=== PATIENT | male | born 1980 | race Caucasian/White ===

== ENCOUNTER 2024-10-20 19:23 | Emergency (ER) | payer MEDICAID, SELFPAY ==
[2024-10-20] VITALS (7 sets, daily range): BP systolic 130–165; BP diastolic 92–130; PULSE 75–92; RESP 18; TEMP 36.6; O2SAT 99–100; BMI 22.1
--- NOTE | 2024-10-20 19:22 | XR_ITS ---
PROCEDURE INFORMATION: Exam: XR Left Hand Exam date and time: 10/20/2024 7:37 PM Age: 44 years old Clinical indication: Injury or trauma; Other: Laceration; Left; Index finger and middle finger and ring finger; Additional info: Traumatic amp TECHNIQUE: Imaging protocol: Radiologic exam of the left hand. Views: 3 or more views. COMPARISON: No relevant prior studies available. FINDINGS: Bones/joints: Comminuted fracture of the 4th digit tuft. Medial displacement/rotation of the medial fragment. Soft tissues: Irregularity in the distal soft tissues of the 4th digit, compatible with laceration. IMPRESSION: 1. Comminuted fracture of the 4th digit tuft. 2. Irregularity in the distal soft tissues of the 4th digit, compatible with laceration.
--- NOTE | 2024-10-20 19:22 | XR_ITS ---
PROCEDURE INFORMATION: Exam: XR Right Hand Trauma Exam date and time: 10/20/2024 7:37 PM Age: 44 years old Clinical indication: Injury or trauma; Other: Laceration; Right; Middle finger; Additional info: R hand inj TECHNIQUE: Imaging protocol: Radiologic exam of the right hand. Views: 3 or more views. Trauma COMPARISON: No relevant prior studies available. FINDINGS: Bones/joints: Normal. No acute fracture. No dislocation. Soft tissues: Normal. No abnormal calcifications. IMPRESSION: No acute findings.
--- NOTE | 2024-10-20 19:25 | PC.NURSE ---
1913- trauma alert called and dispatch notified of trauma alert from [facility]
--- NOTE | 2024-10-20 19:30 | HMH.EDGENADL ---
Discharge Plan Disposition Patient Disposition: Xfer Short-Term Hosp Clinical Impressions Clinical Impression: Open fracture of distal phalanx Injury of hand, right Qualifiers: Encounter type: initial encounter Qualified Code(s): S69.91XA - Unspecified injury of right wrist, hand and finger(s), initial encounter Injury of hand, left Qualifiers: Encounter type: initial encounter Qualified Code(s): S69.92XA - Unspecified injury of left wrist, hand and finger(s), initial encounter Print Language Print Language: [place] Discharge ED Provider: Juan J Bahena General Adult HPI General Chief complaint: Trauma Stated complaint: laceration Time Seen by Provider: 10/20/24 19:29 Mode of Arrival: EMS Source of Information: Patient and EMS Description of Symptoms (Recalled from ER Triage Doc. by RN): near amputation to left 3rd and 4th figners laceration to right 3rd finger see trauma charting History of Present Illness HPI narrative: This is a 44-year-old male who presents with a traumatic amputation of his left 3rd and 4th digits. Also reports laceration to the right third digit. Cut them on a lawnmower blade. Denies any other injuries. States that he had a tetanus shot last year. Related Data Allergies Allergy/AdvReac Type Severity Reaction Status Date / Time No Known Allergies Allergy Verified 10/20/24 19:26 [facility] Disclaimer: The information contained in this section may have been updated after the patient was seen, as this information can be updated by other users. Social History Smoking Status: Current every day smoker alcohol intake: current current occupational status: employed Travel in the last 8 weeks?: None ROS Obtained: Yes All systems reviewed & no additional complaints except as documented Physical Exam General General appearance: alert and in no apparent distress Head Head exam: atraumatic Eye Eye exam: Present normal appearance, PERRL and EOMI Neck Neck exam: Present normal inspection and full ROM Chest Chest inspection: Present symmetric chest wall rise Respiratory Respiratory exam: Present normal lung sounds bilaterally; Absent respiratory distress Cardiovascular Cardiovascular exam: Present regular rate and normal rhythm Abdominal Exam Abdominal exam: Present soft; Absent distention Extremities Exam Extremities exam: Present other (L hand: Deep lacerations to the the distal phalanx of the 3rd and 4th digits. Bone exposed. R hand: Superficial minimally gaping laceration into the distal phalanx of the third digit.) Neurological Exam Neurological exam: Present alert and oriented X3 Psychiatric Psychiatric exam: Present normal affect and normal mood Skin Skin exam: Present warm and dry Medical Decision Making Medical Records Medical records reviewed: Yes I reviewed the patient's medical records. Screening: Per USPSTF and CDC recommendations, given the prevalence of disease in our region, it is our hospital?s policy to screen for HIV and viral Hepatitis for all patients aged 18 and over and those with ongoing risk factors. [place] Inquiry Pt receiving controlled substance: No Vital Signs: 10/20/24 19:23 10/20/24 19:29 Temperature 97.8 F 97.8 F Temperature Source Oral Oral Pulse Rate [Radial] 92 H 92 H Respiratory Rate 18 18 Blood Pressure [Right Arm] 134/111 H 140/92 H Blood Pressure Mean [Right Arm] 118 108 Blood Pressure Position [Right Arm] Sitting Sitting 02 Sat by Pulse Oximetry 100 100 Oxygen Delivery Method Room Air Room Air Lab Data Lab Results 10/20/24 19:26: POC Glucose 139 H Orders (Tests/Meds): ED MEDICATIONS Discontinued Medications Generic Name Dose Route Start Last Admin Trade Name Cliffordq PRN Reason Stop Dose Admin Hydromorphone HCl 0.5 mg 10/20/24 19:22 10/20/24 20:02 Hydromorphone 2mg/Ml Syringe IV 10/20/24 19:23 0.5 mg ONCE ONE Administration Cefazolin Sodium 2 gm/ Sodium 100 mls @ 200 mls/hr 10/20/24 19:23 10/20/24 20:03 Chloride IV 10/20/24 19:52 200 mls/hr ONCE ONE Administration Lorazepam 1 mg 10/20/24 19:22 10/20/24 19:33 Lorazepam 1mg Tablet PO 10/20/24 19:23 1 mg ONCE ONE Administration ORDERS Category Date Time Status Hand XR left minimum 3 views [XR hand LT min 3V] Stat Exams 10/20/24 19:22 Completed Hand XR right minimum 3 views [XR hand RT min 3V] Stat Exams 10/20/24 19:22 Completed POC Glucose,Bedside Routine Lab 10/20/24 19:26 Completed Medical Decision Narrative: This is a 44-year-old male who presents with near amputation of his 3rd and 4th digits of the left hand as well as laceration of the third digit of his right hand after injuring them on a lawnmower blade. On arrival, patient hemodynamically stable, nontoxic-appearing, hemostatic. Differential diagnose includes but is not limited to traumatic amputation, open fracture, soft tissue injury. Tdap up-to-date. Administered 2 g of Ancef. Administered 1 MG oral Ativan for anxiolysis and IV Dilaudid for analgesia. X-ray imaging was obtained and revealing []. Consulted hand surgery at [facility] for evaluation of this patient's injuries. Ultimately transferred to for higher level of care and surgical repair of his near amputations. Accepted to the [facility] emergency department under Dr. Gunn. Transported in stable condition. Critical Care Critical Care Time Critical Care Time: No
[2024-10-20] MEDS: LORazepam 1MG TABLET 1 MG PO (19:33)
[2024-10-20 19:35] LABS: POC Glucose,Bedside 139 (70-110)
--- NOTE | 2024-10-20 19:46 | PC.NURSE ---
Spoke with transfer center, awaiting a call back at this time
[2024-10-20] MEDS: HYDROMORPHONE 2MG/ML SYRINGE 0.5 MG IV (20:02)
[2024-10-20] MEDS: CEFAZOLIN SODIUM 2 GM in 0.9 % SODIUM CHLORIDE 100 ML IV (20:03)
--- NOTE | 2024-10-20 20:14 | PC.NURSE ---
report given to Albert ROMANO at [facility]
--- NOTE | 2024-10-20 20:19 | PC.NURSE ---
Attempted to call EMS for transfer to , no answer at this time
--- NOTE | 2024-10-20 20:25 | PC.NURSE ---
Attempted to call EMS again, no answer at this time.
--- NOTE | 2024-10-20 20:43 | PC.NURSE ---
Spoke with [facility], they are made aware of the transfer and will be up here shortly
== END 2024-10-20 21:14 | disposition short-term general hospital (02) ==
PROVIDERS: Emergency Provider Student in an Organized Health Care Education/Training Program
DX: S62.635B Displaced fracture of distal phalanx of left ring finger, initial encounter for open fracture (principal); W28.XXXA Contact with powered lawn mower, initial encounter
CPT/HCPCS: 73130; 82962; 96365; 96375; 99285; J0690; J1171